=== PATIENT | female | born 2000 | race Caucasian/White ===

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

== ENCOUNTER 2021-09-17 14:33 | Emergency (ER) | payer MEDICAID ==
[~2021-09-17] VITALS: Ht 165.1 cm; Wt 92.6 kg
[2021-09-17 14:38] VITALS: BP 126/67
--- NOTE | 2021-09-17 14:44 | NUR ---
AMBULATED TO ER BED 3
--- NOTE | 2021-09-17 14:45 | NUR ---
PT AMBULATED TO BATHROOM
--- NOTE | 2021-09-17 14:47 | NUR ---
21 Y/O F BIB SELF COMPLAINS OF VAGINAL BLEEDIG X9D R/T MENSES. PT STATES NORMALLY PERIOD ONLY LASTS X5D. DENIES N/V/D; SKIN IS PINK/WARM/DRY; AAOX4 WITH EVEN AND STEADY GAIT; LUNGS CLEAR BL; HR EVEN AND REGULAR; PT DENIES ANY FEVER, CP, SOB, OR COUGH AT THIS TIME; PATIENT STATES PAIN OF 0/10 AT THIS TIME; VSS; PATIENT POSITIONED FOR COMFORT; HOB ELEVATED; BEDRAILS UP X2; BED DOWN. ER MADE AWARE OF PT STATUS. PMH: OVARIAN SURGERY MEDS: DENIES NKA
[2021-09-17] MEDS ORDERED: CEPH-588 PO (15:24)
[2021-09-17 15:32] VITALS: BP 126/67
[2021-09-17 15:48] LABS: APPEARANCE,URINE CLEAR (CLEAR); BILIRUBIN,URINE NEGATIVE (NEGATIVE); BLOOD, URINE 1+ (NEGATIVE); COLOR,URINE YELLOW (YELLOW); LEUKOCYTE ESTERASE ,URINE NEGATIVE (NEGATIVE); NITRITE, URINE POSITIVE (NEGATIVE); UGLUCOSE NEGATIVE (NEGATIVE)
[2021-09-17 15:51] LABS: WBC,URINE 0 /HPF (0-5)
== END 2021-09-17 15:32 | disposition home or self-care (01) ==
LOC: MED 14:33
DX: N39.0 Urinary tract infection, site not specified (principal); N93.9 Abnormal uterine and vaginal bleeding, unspecified; Z98.890 Other specified postprocedural states
CPT/HCPCS: 81001; 81025; 99283

== ENCOUNTER 2023-06-25 15:36 | Emergency (ER) | payer MEDICAID ==
[~2023-06-25] VITALS: Ht 167.6 cm; Wt 100.4 kg
[~2023-06-25 15:36] MED LIST: BEN10 PO; CEPH-588 PO; ONDA-188 SL
[2023-06-25 15:46] VITALS: BP 119/76; PULSE 85; RESP 14; TEMP 98.1; O2SAT 98
[2023-06-25 16:30] LABS: BASOPHILS % (AUTO) 0.3 % (0.0-2.0); EOSINOPHILS # (AUTO) 0.2 K/uL (0-0.4); EOSINOPHILS % (AUTO) 1.7 % (0.0-4.0); HEMATOCRIT 41.6 % (36-48); HEMOGLOBIN 14.6 g/dL (12.0-16.0); LYMPHOCYTES # (AUTO) 4.4 K/uL (2.5-16.5); LYMPHOCYTES % (AUTO) 44.1 % (20.5-51.1); MEAN CORPUSCULAR HEMOGLOBIN 32 pg (27-31); MEAN CORPUSCULAR HGB CONC 35 g/dL (33-37); MEAN CORPUSCULAR VOLUME 91.8 fL (80-94); MONOCYTES # (AUTO) 0.5 K/uL (0.8-1.0); MONOCYTES % (AUTO) 4.8 % (1.7-9.3); NEUTROPHILS # (AUTO) 4.9 K/uL (1.8-7.7); NEUTROPHILS % (AUTO) 49.1 % (42.2-75.2); PLATELET COUNT (AUTO) 311 K/uL (140-450); RED BLOOD CELL COUNT(AUTO) 4.53 MIL/uL (4.20-5.40); RED CELL DISTRIBUTION WIDTH 13.6 % (11.6-13.7); WHITE BLOOD COUNT (AUTO) 9.9 K/uL (4.8-10.8)
[2023-06-25] MEDS ORDERED: NACL 0.9% 1,000 ML IV ONE (16:40)
[2023-06-25] MEDS ORDERED: PYRIDOXINE 50 MG TAB PO ONE (16:40)
[2023-06-25 16:44] LABS: ANION GAP 13.7 (8-16); CALCIUM 8.9 mg/dL (8.5-10.1); CARBON DIOXIDE 24.1 mmol/L (21-32); CREATININE 0.8 mg/dL (0.6-1.3); POTASSIUM 3.8 mmol/L (3.5-5.1)
[2023-06-25 16:48] LABS: ALBUMIN 3.7 g/dL (3.4-5.0); BILIRUBIN,DIRECT 0.1 mg/dL (0.0-0.3); TOTAL BILIRUBIN 0.4 mg/dL (0.0-1.0)
[2023-06-25] MEDS ORDERED: CRUSHER, PILL MC ONE (17:26)
[2023-06-25 17:55] LABS: APPEARANCE,URINE SL CLOUDY (CLEAR); BILIRUBIN,URINE NEGATIVE (NEGATIVE); BLOOD, URINE NEGATIVE (NEGATIVE); COLOR,URINE YELLOW (YELLOW); LEUKOCYTE ESTERASE ,URINE NEGATIVE (NEGATIVE); NITRITE, URINE NEGATIVE (NEGATIVE); PH,URINE 7.5 (5.0-9.0); PROTEIN,URINE TRACE (NEGATIVE); UGLUCOSE NEGATIVE (NEGATIVE); UROBILINOGEN,URINE 0.2 EU/dL (0.2 - 1)
[2023-06-25] MEDS ORDERED: DOXY25TA61 PO (18:06)
[2023-06-25] MEDS ORDERED: PYRI-218 PO (18:06)
== END 2023-06-25 18:21 | disposition home or self-care (01) ==
LOC: MED 15:36
DX: O21.8 Other vomiting complicating pregnancy (principal); Z3A.01 Less than 8 weeks gestation of pregnancy; Z98.890 Other specified postprocedural states; Z79.899 Other long term (current) drug therapy; Z79.2 Long term (current) use of antibiotics
CPT/HCPCS: 36415; 76817; 80048; 80076; 81003; 81025; 84702; 85025; 96360; 99284; J7030; Q0092

== ENCOUNTER 2023-08-15 18:50 | Emergency (ER) | payer MEDICAID ==
[~2023-08-15] VITALS: Ht 167.6 cm; Wt 95.3 kg
[~2023-08-15 18:50] MED LIST changes: +DOXY25TA61 PO; +PYRI-218 PO
[2023-08-15 19:09] VITALS: BP 104/77; PULSE 85; RESP 20; TEMP 97.5; O2SAT 100
[2023-08-15 20:31] LABS: FLU A ANTIGEN negative (NEGATIVE); FLU B ANTIGEN negative (NEGATIVE)
[2023-08-16] MEDS: ONDANSETRON 4 MG ODT PO ONE (00:05)
[2023-08-16] MEDS ORDERED: ROB PO (00:24)
[2023-08-16] MEDS ORDERED: METO-486 PO (00:24)
[2023-08-16] MEDS ORDERED: ACET-2619 PO (00:24)
[2023-08-16] MEDS ORDERED: DOXY1TCP PO (00:24)
[2023-08-16] MEDS ORDERED: ONDA-188 SL (00:24)
== END 2023-08-16 00:49 | disposition home or self-care (01) ==
LOC: MED 18:50
DX: O99.511 Diseases of the respiratory system complicating pregnancy, first trimester (principal); J06.9 Acute upper respiratory infection, unspecified; O21.8 Other vomiting complicating pregnancy; Z20.822 Contact with and (suspected) exposure to COVID-19; Z3A.12 12 weeks gestation of pregnancy; Z79.899 Other long term (current) drug therapy
CPT/HCPCS: 87081; 87426; 87804; 99283; Q0162